=== PATIENT | male | born 1950 | race Caucasian/White ===

== ENCOUNTER 2022-09-02 09:35 | Outpatient (CLI) | payer MEDICARE, SELFPAY ==
--- NOTE | 2022-09-02 11:11 | ECG_ITS ---
Measurements Intervals [place] Rate: 82 P: LA: 0 QRS: -9 QRSD: 106 T: 21 QT: 358 QTc: 420 Interpretive Statements ATRIAL FIBRILLATION ABNORMAL RHYTHM ECG NO PREVIOUS ECG AVAILABLE FOR COMPARISON Electronically Signed On 09-02-2022 13:50:27 CDT by Bethel Monet M.D.
[2022-09-02 11:41] LABS: Basophils Absolute Auto 0.1 K/mm3 (0.0-0.1); Basophils Percent Auto 0.9 % (0.2-1.2); Eosinophils Absolute Auto 0.3 K/mm3 (0-0.3); Eosinophils Percent Auto 3.8 % (0-4.4); Hematocrit 44.2 % (42.0-52.0); Hemoglobin 14.4 g/dL (14.0-18.0); Immature Granulocyte Absolute 0.05 K/mm3 (0.00-0.031); Immature Granulocyte Percent A 0.6 % (0-0.5); Lymphocytes Absolute Auto 2.14 K/mm3 (0.9-3.2); Lymphocytes Percent Auto 26.8 % (18.3-44.2); Mean Corpuscular HGB Conc 32.6 g/dl (32-36); Mean Corpuscular Hemoglobin 32.7 pg (26-34); Mean Corpuscular Volume 100.2 fl (80-100); Monocytes Absolute Auto 0.6 K/mm3 (0.1-0.6); Monocytes Percent Auto 7.6 % (2.6-8.5); Neutrophils Absolute Auto 4.8 K/mm3 (1.3-6.7); Neutrophils Percent Auto 60.3 % (45.5-73.1); Platelet Count Result 190 k/mm3 (150-375); Red Blood Count 4.41 M/mm3 (4.6-6.20); Red Cell Distribution Width 14.1 % (11.5-14.5)
[2022-09-02 11:47] LABS: Albumin Level 4.1 g/dL (3.5-5.1)
[2022-09-02 11:50] LABS: Urine Cotinine NEGATIVE
[2022-09-02 11:51] LABS: Anion Gap 3 mmol/L (8-16); Blood Urea Nitrogen 20 mg/dL (9-20); Calcium 9.3 mg/dL (8.4-10.2); Carbon Dioxide 32 mmol/L (22-30); Chloride 103 mmol/L (98-107); Estimated Glomerular Filt Rate 54; Glucose 84 mg/dL (65-110); Potassium 4.7 mmol/L (3.4-5.0); Sodium 138 mmol/L (137-145)
== END 2022-09-02 09:36 | disposition home or self-care (01) ==
PROVIDERS: Anesthesiology; Visit Provider Orthopaedic Surgery
DX: M17.12 Unilateral primary osteoarthritis, left knee (principal); M79.2 Neuralgia and neuritis, unspecified; Z79.899 Other long term (current) drug therapy; D50.0 Iron deficiency anemia secondary to blood loss (chronic); I10 Essential (primary) hypertension; Z51.81 Encounter for therapeutic drug level monitoring; Z01.818 Encounter for other preprocedural examination
CPT/HCPCS: 80048; 80307; 82040; 83036; 85025; 87081; 93005

== ENCOUNTER 2022-09-29 01:43 | Day surgery (SDC) | payer MEDICARE, SELFPAY ==
[2022-09-02 10:16] VITALS: BP 156/102; PULSE 87; RESP 16; TEMP 36.8; O2SAT 97; BMI 39.9
--- NOTE | 2022-09-02 10:37 | PC.NURSE ---
Report to the Outpatient Waiting Room, entrance under the green pavilion located off [facility], at time __6:00AM on date ___09/29/22____. Planned Procedure Time: __7:30AM . Time changes happen often and if your time is changed the preop area will call you the afternoon before. - You and your visitor will be asked to self-screen and do not enter if you have any COVID symptoms. - A mask is optional within the hospital at this time. Patients may have clear liquids (water, carbonated beverages, clear teas, apple juice) until 3 hours prior to surgery with a maximum of 20 ounces. - No food from midnight until time of surgery. Take the following medications with a SIP of water the morning of surgery: ___LEVOTHYROXINE, METOPROLOL, HYDROCODONE NEEDED, FLONASE NEEDED DO NOT STOP ANY OF YOUR OTHER PRESCRIPTION MEDICATIONS PRIOR TO SURGERY ?EXCEPT THE FOLLOWING Medications to discontinue per physician __HOLD DICLOFENAC, ASPIRIN AND VOLTAREN CREAM 7 DAYS BEFORE SURGERY- LAST DOSE-09/22/22, HOLD ALL VITAMINS/SUPPLEMENTS 3 DAYS PRE-OP- LAST DOSE 09/25/22, __HOLD ELIQUIS PER DR GARCIA Please no make-up, nail iraqi, hairspray, perfume, deodorant, or body powder the day of surgery. No jewelry (including any body piercings) or valuables the day of surgery, leave them at home. Please take a shower or bath the night before, or the morning of, surgery with an antibacterial soap. Wear comfortable, loose fitting clothing. Children are encouraged to wear pajamas. - Jewelry must be removed prior to entering the operating room. Rings and piercings that are not removed may be cut off. - The hospital will not accept responsibility for valuables. - Please leave all valuables, including medications, at home the day of surgery. If you are going home after surgery, a licensed speedboat driver must drive you home. - NO public transportation without another adult if you receive anesthesia. - We recommend that an adult stay with you for 24 hours following discharge. - We also recommend that you do not drive, make important decision, drink alcoholic beverages, or take any drugs that were not prescribed by your health care provider for at least 24 hours after your discharge time. Follow any additional instructions given to you from your surgeon. If you or anyone in your household have experienced Covid symptoms in the past week, please notify your surgeon or the nurse liaison at the phone number below for possible testing. Telephone instructions given to ___PATIENT and asked if any additional questions and then verbalized understanding. Patient advised to call surgeon office or pre surgery nurse liaison [phone] if any additional questions.
[2022-09-29] VITALS (16 sets, daily range): BP systolic 89–135; BP diastolic 57–92; PULSE 65–94; RESP 14–21; TEMP 36.4–36.7; O2SAT 92–99; BMI 39.6
--- NOTE | ~2022-09-29 | XR_ITS ---
EXAMINATION: [id number] DATE: 09/29/2022 10:17 INDICATION: Postoperative evaluation following left total knee arthroplasty. TECHNIQUE: Anteroposterior and lateral views of the left knee were obtained. COMPARISON: Left knee radiographs dated 07/04/2022 FINDINGS: Left total knee arthroplasty with patellar resurfacing appears well seated and in near anatomic align ment. No fractures identified. 3 small heterotopic ossicles versus loose osteochondral bodies projec ting along the posterior medial margin of the tibial component. Expected postoperative subcutaneous a nd intra-articular gas. IMPRESSION: 1. Left total knee arthroplasty, negative for postoperative purposes. Reviewed, dictated and finalized at location A.
[2022-09-29] MEDS: ACETAMINOPHEN 500 MG TABLET 1000 MG PO (06:46)
--- NOTE | 2022-09-29 06:59 | WPDHPUPDATE1 ---
History and Physical Update Update Date/Time: 09/29/22 06:59 History and Physical has been reviewed, including an updated exam of the patient. There are NO changes in the patient's condition. Risks, benefits, and alternatives have been discussed and questions answered. Patient agrees to proceed with procedure.
[2022-09-29] MEDS: TRANEXAMIC ACID 1,000MG/ISO100 1,000 MG/100 ML BAG 200 MG IVPB (07:01)
--- NOTE | 2022-09-29 07:11 | WPDANESEPPF ---
Anes - Initial Pre Proc Eval Procedure: Operation Date: 09/29/22 07:30 Proposed Procedures p Left Total Knee Arthroplasty - Reji Arita MD Date/Time: 09/29/22 07:11 Surgeon: Reji Arita MD Pre Op Diagnosis: primary OA left knee Patient Data Age: 72 Gender: M Height: 1.69 m Weight: 109 kg Last Vital Signs Temp 36.4 C 09/29/22 06:04 Pulse 94 09/29/22 06:04 Resp 16 09/29/22 06:04 BP 111/66 09/29/22 06:04 Pulse Ox 96 09/29/22 06:04 O2 Del Method Room Air 09/29/22 06:04 Allergies Allergy/AdvReac Type Severity Reaction Status Date / Time No Known Allergies Allergy Verified 09/29/22 06:15 Home Medications Medication Instructions Recorded Confirmed Type allopurinol 300 mg tablet 300 mg PO DAILY 06/07/22 09/29/22 History aspirin 81 mg tablet,delayed 81 mg PO DAILY 06/07/22 09/29/22 History release benazepril 40 mg tablet 40 mg PO BID 06/07/22 09/29/22 History cetirizine 10 mg tablet (All Day 10 mg PO DAILY PRN Sinus Symptoms 06/07/22 09/29/22 History Allergy (cetirizine)) cholecalciferol (vitamin D3) 50 50 mcg PO DAILY 06/07/22 09/29/22 History mcg (2,000 unit) capsule cyanocobalamin (vitamin B-12) 1,000 mcg PO DAILY 06/07/22 09/29/22 History 1,000 mcg capsule cyclobenzaprine 10 mg tablet 10 mg PO BID PRN Muscle Spasm 06/07/22 09/29/22 History diclofenac sodium 75 mg 75 mg PO BID 06/07/22 09/29/22 History tablet,delayed release doxazosin 4 mg tablet 4 mg PO HS 06/07/22 09/29/22 History hydrochlorothiazide 12.5 mg tablet 12.5 mg PO QAM 06/07/22 09/29/22 History hydrocodone 10 mg-acetaminophen 1 tablet PO Q6H PRN Pain 06/07/22 09/29/22 History 325 mg tablet levothyroxine 13 mcg capsule 13 mcg PO QAM 06/07/22 09/29/22 History omeprazole 10 mg capsule,delayed 5 mg PO BID 06/07/22 09/29/22 History release rosuvastatin 10 mg tablet 10 mg PO HS 06/07/22 09/29/22 History vitamin E succinate 67 mg (100 67 mg PO DAILY 06/07/22 09/29/22 History unit) tablet apixaban 5 mg tablet (Eliquis) 5 mg PO BID 09/02/22 09/29/22 History diclofenac sodium 1 % topical gel 2 g topical QID PRN Pain 09/02/22 09/29/22 History (Voltaren Arthritis Pain) fluticasone propionate 50 1 spray intranasal Q12H PRN 09/02/22 09/29/22 History mcg/actuation nasal Congestion spray,suspension (Flonase Allergy Relief) metoprolol succinate 25 mg 25 mg PO QAM 09/02/22 09/29/22 History tablet,extended release 24 hr Patient hx anesthesia problems: none Family hx anesthesia problems: none Results Review: All pre-operative results and documents have been reviewed as part of the pre-operative evaluation. FOR[facility] Past Medical History Medical History History of bruising easily Hyperlipidemia Hypertension Osteoporosis Surgical History Surgical History History of back surgery History of total right knee replacement Family History Family History Father Family history of arthritis Heart disease Diabetes mellitus Social History Social History Smoking packs per day: 2 Smoking cigarettes per day: 40.0 Years smoked: 20 Smoking pack-years: 40.00 Smoking status: Former smoker Tobacco type: cigarettes Smoking end date: 10/01/01 Alcohol intake: never Substance use: never Lack of Transportation: No Lack of Food: Never True Current Housing: I Have Housing Concerned About Future Housing: No Difficulty Paying Gas/Electric Bills: No Difficulty Paying for Meds: No Currently Unemployed: No Education: Trade/Vocational Certificate Difficulty w/ Childcare or Family Care: No Living arrangements: with family Additional living arrangements comments: DAUGHTER AND CHILDREN Spiritual care concerns: No Ane
[2022-09-29] MEDS: LACTATED RINGERS 1,000 ML 30 ML IV CONT ×2 (07:18→09:50)
[2022-09-29] MEDS: ceFAZolin 2 GM/D5W 50 ML 2 GM/50 ML BAG IVPB (07:30)
--- NOTE | 2022-09-29 07:32 | WPDANESPNB ---
Anes - Peripheral Nerve Block Date/Time: 09/29/22 07:32 I have discussed with the patient/family/POA the placement of a peripheral nerve block for post-operative pain management, including associated risks, benefits, complications, and side effects. Alternative methods of post-operative analgesia were detailed. Questions were solicited and answers provided to the satisfaction of the patient/family/POA. Time-Out: A pre-procedural Time-Out was completed immediately before starting the procedure and confirmed: Patient Identification, Site, Procedure, Patient Position and the Availability of Requisite Equipment. Clinical Indications: Acute post-operative pain management requested by the operative surgeon. Nerve Block Insertion Note Anes-nerve block: adductor canal left Patient position: supine Skin prep: chlorhexidine Needle: 22 gauge, stimulating, insulated echogenic needle. Needle length: 80 mm Technique: ultrasound Technique comment: mid 2mg fent 50mcg Injectate: bupivacaine 0.5% with epi 5 mcg/ml (30ml no epi) and dexamethasone (mg) (4) Observations: tolerated well Complications: none Procedure start time:: 719 Procedure end time:: 726
--- NOTE | 2022-09-29 10:19 | W.PM.PROC2 ---
Procedure Note - Detailed Date of Procedure 09/29/22 Pre-op Diagnosis primary OA left knee Post-op Diagnosis Same Procedure Performed Total knee arthroplasty, left. Surgeon Reji Arita MD Anesthesia General and Regional (subsartorial block) Findings Extensive medial tibial erosions. Minimal bony resection taken medially. Significant gap. Posterior stabilized knee selected. Large medial release. Description of Procedure The patient was brought to the operating room. A general anesthetic was administered. The leg was prepped and draped in the usual sterile fashion. The limb was elevated and the tourniquet inflated to 300 mmHg during initial exposure, and cementation. A longitudinal incision was created along the medial border of the patella and patellar tendon, and a trivector approach to the knee was performed. A large medial release was taken. The knee was then flexed. The osteophytes were carefully removed. The intramedullary guide was placed in the femoral canal. The distal femoral resection was then taken with the oscillating saw. The collateral ligaments were carefully protected. The tibia was carefully exposed. The jig was applied, and the proximal tibia was resected according to preoperative plan. The knee was balanced in extension. Appropriate releases were taken where needed. The anterior and posterior cruciate ligaments and meniscal remnants were removed. The patella was measured. Patellar resection was carried out with the oscillating saw. The lug holes drilled. The femur was sized and rotation assessed using a combination of gap balancing, posterior referencing, and the AP axis. The 4 in 1 cutting block and box cut were used to finish the femoral cuts after equal gaps were assured. The osteophytes were removed from the back of the knee. The knee was copiously irrigated with antibiotic solution periodically throughout the procedure. The meniscal remnants were removed. The spacer block was used to confirm equal flexion and extension gaps. No further releases were needed. The tibia was sized and broached. The bony surfaces were prepared for cementing with pulsatile lavage. The real tibial and femoral and patellar components were cemented into position. Excess cement was carefully removed. Patellar tracking was carefully assessed. No additional releases were required. Copious irrigation then performed. The wound was closed with #1 Vicryl suture, #2, 2-0, and 3-0 barbed suture, followed by Steri-Strips. A sterile bulky dressing was applied. Meticulous hemostasis was maintained throughout the procedure. The bipolar cautery device was used. The pain relieving mixture was injected into the periarticular tissues during the procedure. There were no complications. The patient was extubated and brought to the recovery room in stable condition after the application of sterile dressing with Jon bandage. Implants [place] Triathlon knee system, universal cemented tibia size 3, cemented posterior stabilized femoral component size 5 ,and an 16 mm posterior stabilized polyethylene insert. 35mm asymmetric all polyethylene patella component. Estimated Blood Loss 100 Tourniquet Time 72 Drains No Pathology None sent Complications No immediate complications Condition Stable Disposition PACU [facility] Billing Surgery - Charge Forward: Surgery Billing
[2022-09-29 10:26] LABS: Glucose Point of Care 163 mg/dl (65-105)
[2022-09-29] MEDS: MORPHINE SULFATE (*CRX) 2 MG/ML INJ IV PUSH (10:26)
[2022-09-29] MEDS: FUROSEMIDE INJ 40 MG/4 ML VIAL 10 MG IV PUSH (10:26)
--- NOTE | 2022-09-29 11:15 | ADMGEN ---
This patient, Shaun Andersen, was admitted to Medical Room 261-01. Patient/family oriented to hospital policies and general routines including ID bracelet, bed and alarms, visiting hours, pain management, procedures, bathroom and other care routines, personal items, smoking policy, room service/diet, and visiting hours. Information on how to activate the Rapid Response Team has been discussed. Patient/Family are encouraged to report perceived risks to care and to ask questions if they do not understand what they are told or what they should do.
[2022-09-29] MEDS: allopurinoL 300 MG TABLET PO (12:41)
[2022-09-29] MEDS: ceFAZolin 1 GM/NS 50 ML 1 GM/50 ML BAG IVPB (16:31)
[2022-09-29] MEDS: lisinopriL 20 MG TABLET 40 MG PO (16:34)
[2022-09-29] MEDS: MELOXICAM 7.5 MG TABLET PO (16:34)
[2022-09-29] MEDS: SENNA/DOCUSATE SODIUM TABLET 2 TAB PO (16:34)
--- NOTE | 2022-09-29 16:43 | PCPTNOTE ---
On 09/29/22, the student, [Tamiko Gary], provided care and completed [facility] documentation on this patient. I have reviewed the student's documentation and agree with the findings.
[2022-09-29] MEDS: CYCLOBENZAPRINE HCL 10 MG TABLET PO (18:34)
[2022-09-29] MEDS: ROSUVASTATIN 10 MG TABLET PO (20:34)
[2022-09-29] MEDS: DOXAZOSIN MESYLATE 4 MG TABLET PO (20:34)
[2022-09-30] MEDS: ceFAZolin 1 GM/NS 50 ML 1 GM/50 ML BAG IVPB (00:44)
[2022-09-30] MEDS: oxyCODONE HCL (*CRX) 5 MG TAB IR PO (00:49)
[2022-09-30 00:51] VITALS: BP 116/71; PULSE 87; RESP 18; TEMP 36.4; O2SAT 97
[2022-09-30] MEDS: ACETAMINOPHEN 500 MG TABLET 1000 MG PO (03:20)
[2022-09-30 04:49] VITALS: BP 136/74; PULSE 92; RESP 16; TEMP 36.8; O2SAT 93
[2022-09-30 05:31] LABS: Basophils Percent Auto 0.1 % (0.2-1.2); Eosinophils Percent Auto 0.1 % (0-4.4); Hematocrit 35.6 % (42.0-52.0); Hemoglobin 11.7 g/dL (14.0-18.0); Immature Granulocyte Absolute 0.08 K/mm3 (0.00-0.031); Immature Granulocyte Percent A 0.5 % (0-0.5); Lymphocytes Absolute Auto 1.51 K/mm3 (0.9-3.2); Lymphocytes Percent Auto 10.2 % (18.3-44.2); Mean Corpuscular HGB Conc 32.9 g/dl (32-36); Mean Corpuscular Hemoglobin 32.3 pg (26-34); Mean Corpuscular Volume 98.3 fl (80-100); Mean Platelet Volume 11.5 fl (7.4-10.4); Monocytes Absolute Auto 1.4 K/mm3 (0.1-0.6); Monocytes Percent Auto 9.7 % (2.6-8.5); Neutrophils Absolute Auto 11.8 K/mm3 (1.3-6.7); Neutrophils Percent Auto 79.4 % (45.5-73.1); Platelet Count Result 194 k/mm3 (150-375); Red Blood Count 3.62 M/mm3 (4.6-6.20); Red Cell Distribution Width 12.9 % (11.5-14.5); White Blood Count 14.8 K/mm3 (4.5-10.0)
[2022-09-30 05:37] LABS: Anion Gap 6 mmol/L (8-16); Blood Urea Nitrogen 30 mg/dL (9-20); Calcium 8.9 mg/dL (8.4-10.2); Carbon Dioxide 29 mmol/L (22-30); Chloride 99 mmol/L (98-107); Estimated CRCL calculation 61 ml/min; Estimated Glomerular Filt Rate > 60; Glucose 107 mg/dL (65-110); Potassium 4.1 mmol/L (3.4-5.0); Sodium 134 mmol/L (137-145)
--- NOTE | 2022-09-30 07:57 | WPDANESPN ---
Anes - Prog Note Post-Op Date/Time: 09/30/22 07:57 Vital Signs: Last Vital Signs Temp 36.8 C 09/30/22 04:49 Pulse 92 09/30/22 04:49 Resp 16 09/30/22 04:49 BP 136/74 09/30/22 04:49 Pulse Ox 93 09/30/22 04:49 O2 Del Method Room Air 09/29/22 20:00 O2 Flow Rate 1 09/29/22 13:41 Pain Score (VAS): 1 I/O: Intake & Output 09/29/22 09/29/22 09/30/22 15:59 23:59 07:59 Intake Total 60 840 450 Output Total 250 Balance 60 590 450 Laboratory Tests 09/30/22 04:59 09/30/22 04:59 09/29/22 09/29/22 09/30/22 06:13 10:16 04:59 WBC 14.8 H RBC 3.62 L Hgb 11.7 L Hct 35.6 L MCV 98.3 MCH 32.3 MCHC 32.9 RDW 12.9 Plt Count 194 MPV 11.5 H Immature Gran % (Auto) 0.5 Neut % (Auto) 79.4 H Lymph % (Auto) 10.2 L [place] % (Auto) 9.7 H Eos % (Auto) 0.1 Baso % (Auto) 0.1 L Lymph # (Auto) 1.51 [place] # (Auto) 1.4 H Eos # (Auto) 0.0 Baso # (Auto) 0.0 Abs Immat Gran (auto) 0.08 H Absolute Neuts (auto) 11.8 H Absolute Nucleated RBC 0.0 Nucleated RBC % 0.0 Sodium 134 L Potassium 4.1 Chloride 99 Carbon Dioxide 29 Anion Gap 6 L BUN 30 H D Creatinine 1.10 Estim Creat Clear Calc 61 Estimated GFR > 60 Glucose 107 POC Capillary Glucose 163 H Calcium 8.9 Antibody Screen Negative Patient Feedback: Patient satisfied with anesthetic care.
[2022-09-30 08:02] VITALS: BP 100/59; PULSE 96; RESP 17; TEMP 36.8; O2SAT 94
[2022-09-30] MEDS: MELOXICAM 7.5 MG TABLET PO (10:00)
[2022-09-30] MEDS: CYANOCOBALAMIN 1,000 MCG TABLET 1000 MCG PO (10:00)
[2022-09-30] MEDS: CHOLECALCIFEROL 1,000 UNITS TABLET 2000 UNITS PO (10:01)
[2022-09-30] MEDS: ASPIRIN 81 MG ENTERIC TABLET PO (10:01)
[2022-09-30] MEDS: predniSONE 5 MG TABLET PO (10:01)
[2022-09-30] MEDS: allopurinoL 300 MG TABLET PO (10:01)
[2022-09-30] MEDS: VITAMIN E 100 UNIT CAPSULE PO (10:02)
[2022-09-30] MEDS: PANTOPRAZOLE 40 MG TABLET PO (10:02)
[2022-09-30] MEDS: polyethylene glycoL 3350 17 GM POWD.PACK PO (10:05)
[2022-09-30] MEDS: SENNA/DOCUSATE SODIUM TABLET 2 TAB PO (10:07)
[2022-09-30 11:55] VITALS: BP 110/60; PULSE 97; RESP 16; TEMP 36.8; O2SAT 98
--- NOTE | 2022-09-30 12:50 | PM.DS ---
DS: Admitting Diagnosis Discharge Date 09/30/22 Admitting Diagnosis Djd left knee DS: Discharge Diagnosis Discharge Diagnosis (1) Status post total knee replacement, left: Code(s): Z96.652 - Presence of left artificial knee joint Status: Acute DS: Summary Hospital Course Reason for hospitalization: Total knee arthroplasty. Hospital Course: Tolerated surgery well. Progressed appropriately with therapy. Status at Discharge Functional status at discharge: uses cane/walker Overall status at discharge: patient is progressing back to baseline Time Spent with Patient Time attestation: Total time spent providing and/or coordinating discharge services: Exam Const: General: no acute distress Resp: Effort & Inspection: normal respiratory effort Skin: Other: Wound healing well. Mepilex dressing intact. No hematoma or drainage. Neuro: Motor exam (neuro): 5/5 motor strength present throughout Sensory Exam: normal sensation Psych: Mental Status: mental status grossly normal Speech and movement: Normal speech and movement present DS: Data Data Completed and Pending Labs on day of discharge: Labs from last 24 hours 09/30/22 04:59 WBC 14.8 H RBC 3.62 L Hgb 11.7 L Hct 35.6 L MCV 98.3 MCH 32.3 MCHC 32.9 RDW 12.9 Plt Count 194 MPV 11.5 H Immature Gran % (Auto) 0.5 Neut % (Auto) 79.4 H Lymph % (Auto) 10.2 L [place] % (Auto) 9.7 H Eos % (Auto) 0.1 Baso % (Auto) 0.1 L Lymph # (Auto) 1.51 [place] # (Auto) 1.4 H Eos # (Auto) 0.0 Baso # (Auto) 0.0 Abs Immat Gran (auto) 0.08 H Absolute Neuts (auto) 11.8 H Absolute Nucleated RBC 0.0 Nucleated RBC % 0.0 Sodium 134 L Potassium 4.1 Chloride 99 Carbon Dioxide 29 Anion Gap 6 L BUN 30 H D Creatinine 1.10 Estim Creat Clear Calc 61 Estimated GFR > 60 Glucose 107 Calcium 8.9 Discharge Plan Discharge Patient Disposition: Home, Self-Care Discharge Instructions: See instruction sheet. Patient Instructions: Antibiotic Form Stand Alone Forms: General Discharge Instructions Discharge Medications: New prednisone 5 mg tablet 5 mg PO DAILY Qty: 10 0RF meloxicam 7.5 mg tablet 7.5 mg PO .twice daily Qty: 60 0RF oxycodone-acetaminophen 5-325 mg tablet 1 - 2 tablet PO Q6H MDD 6 tablets PRN (Reason: pain) Qty: 30 0RF Continued allopurinol 300 mg tablet 300 mg PO DAILY aspirin 81 mg tablet,delayed release (DR/EC) 81 mg PO DAILY cyclobenzaprine 10 mg tablet 10 mg PO BID PRN (Reason: Muscle Spasm) doxazosin 4 mg tablet 4 mg PO HS benazepril 40 mg tablet 40 mg PO BID hydrochlorothiazide 12.5 mg tablet 12.5 mg PO QAM levothyroxine 13 mcg capsule 13 mcg PO QAM omeprazole 10 mg capsule,delayed release(DR/EC) 5 mg PO BID rosuvastatin 10 mg tablet 10 mg PO HS cyanocobalamin (vitamin B-12) 1,000 mcg capsule 1,000 mcg PO DAILY cholecalciferol (vitamin D3) 50 mcg (2,000 unit) capsule 50 mcg PO DAILY vitamin E succinate 67 mg (100 unit) tablet 67 mg PO DAILY cetirizine [All Day Allergy (cetirizine)] 10 mg tablet 10 mg PO DAILY PRN (Reason: Sinus Symptoms) fluticasone propionate [Flonase Allergy Relief] 50 mcg/actuation [place],Suspension 1 spray INTRANASAL Q12H PRN (Reason: Congestion) Rx Instructions: administer into each nostril metoprolol succinate 25 mg tablet extended release 24 hr 25 mg PO QAM Held Eliquis 5 mg tablet 5 mg PO BID Hold Instructions: Resume on 10/06/22. Discontinued diclofenac sodium 75 mg tablet,delayed release (DR/EC) 75 mg PO BID hydrocodone-acetaminophen 10-325 mg tablet 1 tablet PO Q6H PRN (Reason: Pain) diclofenac sodium [Voltaren Arthritis Pain] 1 % Gel 2 g TOPICAL QID PRN (Reason: Pain) Rx Instructions: apply to single elbow, wrist or hand; for hand includes palm/fingers/back of hand Quality VTE Prophylaxis VTE
[2022-09-30] MEDS: CEPHALEXIN 500 MG CAPSULE PO (13:22)
== END 2022-09-30 13:40 | disposition home or self-care (01) ==
LOC: ANHSURGERY 10:16 → ANH2MED 11:07
PROVIDERS: Visit Provider Orthopaedic Surgery
PROC: (CPT 27447; principal; 2022-09-29 07:30)
DX: M17.12 Unilateral primary osteoarthritis, left knee (principal); G89.18 Other acute postprocedural pain; I10 Essential (primary) hypertension; E78.5 Hyperlipidemia, unspecified; M81.0 Age-related osteoporosis without current pathological fracture; Z87.891 Personal history of nicotine dependence; E66.9 Obesity, unspecified; Z68.39 Body mass index [BMI] 39.0-39.9, adult; Z79.891 Long term (current) use of opiate analgesic; Z79.82 Long term (current) use of aspirin; Z79.01 Long term (current) use of anticoagulants
CPT/HCPCS: 27447; 64447; 36415; 73560; 80048; 82948; 85025; 86850; 86900; 86901; 97110; 97161; 97165; 97530; 97535; A9270; C1713; C1776; J0171; J0690; J1100; J1170; J1885; J1940; J2250; J2270; J2405; J2704; J2795; J3010; J7120; J7512